=== PATIENT | female | born 1955 | race Two or more races ===

== ENCOUNTER 2025-09-09 17:11 | Emergency (ER) | payer OTHER ==
[~2025-09-09] VITALS: Ht 157.5 cm; Wt 68.9 kg
[2025-09-09 17:36] VITALS: BP 145/78; O2SAT 99
[2025-09-09] MEDS ORDERED: ZESTRIL5 MG PO (17:36)
[2025-09-09] MEDS ORDERED: FAMOTIDINE/PF 20 MG in 0.9 % SODIUM CHLORIDE 8 ML IV PUSH ONE (18:30)
[2025-09-09] MEDS ORDERED: 0.9 % SODIUM CHLORIDE 1,000 ML IV ONE (18:30)
[2025-09-09] MEDS ORDERED: KETOROLAC TROMETHAMINE 30 MG VIAL IU ONE (18:30)
[2025-09-09] MEDS ORDERED: ORPHENADRINE CITRATE 30 MG/ML AMPUL IM ONE (18:30)
[2025-09-09] MEDS ORDERED: ORPHENADRINE CITRATE 30 MG/ML AMPUL ONE (19:26)
[2025-09-09] MEDS ORDERED: KETOROLAC TROMETHAMINE 30 MG VIAL ONE (19:26)
[2025-09-09] MEDS ORDERED: FAMOTIDINE/PF 20 MG/2 ML VIAL ONE (19:27)
[2025-09-09 20:10] LABS: BASO % 0.2 % (0.1-1.2); EOS # 0.14 (0.04-0.54); EOS % 1.2 % (0.7-7.0); LYMPH # 3.32 (1.18-3.74); LYMPH % 27.3 % (19.3-53.1); MEAN PLATELET VOLUME 9.80 fl (9.4-12.4); MONO # 0.83 (0.24-0.82); MONO % 6.8 % (4.7-12.5); NEUT # 7.77 (1.56-6.13); NEUT % 64.0 % (34.0-71.1); RED CELL DISTRIBUTION WIDTH 12.4 % (11.6-14.4)
[2025-09-09 20:35] LABS: INR < 0.93
[2025-09-09 20:41] LABS: ALT/SGPT 25.0 U/L (12-78); AST/SGOT 18.0 U/L (15-37); BILIRUBIN TOTAL 0.48 mg/dL (0.3-1.2); BUN CREA RATIO 23.0 (7.0-25.0); CREATININE SERUM 0.8 mg/dL (0.55-1.02); GFR 70.51; GLOBULINA 4.0 G/DL (2.4-3.5); GLUCOSE FASTING 188.0 mg/dL (65-100); OSMOLALITY SERUM 284.0 MOSM/KG (275-295); PHOSPHOKINASE CREATININE 129.0 U/L (26-192)
[2025-09-09 22:31] LABS: URINE APPEARANCE Clear; URINE BILIRRUBIN Negative (NEGATIVE); URINE BLOOD Small; URINE COLOR Yellow; URINE GLUCOSE Negative (NEGATIVE); URINE KETONE Negative (NEGATIVE); URINE LEUKOCYTE Small; URINE NITRATE Negative; URINE PROTEIN Negative (NEGATIVE); URINE UROBILINOGEN 0.2 E.U./dl
[2025-09-09 22:33] LABS: URINE BACTERIA 7943.7 uL (0.0-1933); URINE EPITHELIAL CELLS 10.4 uL (0.0-38.8); URINE RBC 11.3 uL (0.0-20.8); URINE WBC 68.4 uL (0.0-23.2)
[2025-09-09 22:35] LABS: URINE CAST 0.00 uL (0.0-1.40)
[2025-09-09] MEDS ORDERED: NORFLEX100MG PO (23:41)
[2025-09-09] MEDS ORDERED: PEPCID AC20 MG PO (23:41)
[2025-09-09] MEDS ORDERED: IBU600 MG PO (23:41)
== END 2025-09-10 00:09 | disposition home or self-care (01) ==
LOC: EDBD 17:12 → ER 17:12
PROVIDERS: General Practice
DX: M79.604 Pain in right leg (principal); W01.0XXA Fall on same level from slipping, tripping and stumbling without subsequent striking against object, initial encounter; Y93.89 Activity, other specified; Y92.89 Other specified places as the place of occurrence of the external cause; Z91.041 Radiographic dye allergy status; Z85.3 Personal history of malignant neoplasm of breast; E11.9 Type 2 diabetes mellitus without complications; Z85.828 Personal history of other malignant neoplasm of skin